=== PATIENT | female | born 1995 | race Hispanic/Latino ===

== ENCOUNTER 2017-11-28 05:55 | Inpatient (IN) | payer OTHER, MEDICAID ==
[2017-11-28] VITALS (19 sets, daily range): BP systolic 19–114; BP diastolic 38–72
[2017-11-28] MEDS ORDERED: LACTATED RINGERS 1000ML 1,000 ML IV PRN (07:05)
[2017-11-28 07:14] LABS: APPEARANCE,URINE CLEAR (CLEAR); BILIRUBIN,URINE NEGATIVE (NEGATIVE); COLOR,URINE YELLOW (YELLOW); GLUCOSE, URINE (UA) NEGATIVE (NEGATIVE); KETONES,URINE NEGATIVE (NEGATIVE); LEUKOCYTE ESTERASE ,URINE NEGATIVE (NEGATIVE); NITRATE,URINE NEGATIVE (NEGATIVE); OCCULT BLOOD,URINE NEGATIVE (NEGATIVE); PH,URINE 7.5 (5.0-8.0); PROTEIN,URINE NEGATIVE (NEGATIVE); UROBILINOGEN,URINE 0.2 mg/dL (0.2-1.0)
[2017-11-28 07:29] LABS: HEMATOCRIT 31.4 % (36-48); MEAN CORPUSCULAR HGB CONC 33.1 g/dL (32.0-36.0); MEAN CORPUSCULAR VOLUME 75.6 fL (79-99); PLATELET COUNT (AUTO) 327 K/uL (130-400); RED BLOOD CELL COUNT(AUTO) 4.15 MIL/uL (4.00-5.50); RED CELL DISTRIBUTION WIDTH 15.5 % (11.0-15.5); WHITE BLOOD COUNT (AUTO) 9.5 K/uL (4.8-10.8)
[2017-11-28] MEDS ORDERED: CALDOLOR 800MG+NS 250ML 250 ML IV ONE (07:35)
[2017-11-28] MEDS ORDERED: CEFAZOLIN SODIUM 1 GM VIAL ONE (07:35)
[2017-11-28] MEDS ORDERED: OXYTOCIN 10 USP UNITS/ML ONE ×3 (07:36→14:54)
[2017-11-28 07:37] LABS: AMPHET/METH SCREEN,URINE NEGATIVE (NEGATIVE); BARBITURATE SCREEN, URINE NEGATIVE (NEGATIVE); BENZODIAZEPINES SCREEN,URINE NEGATIVE (NEGATIVE); CANNABINOID SCREEN,URINE NEGATIVE (NEGATIVE); COCAINE SCREEN,URINE NEGATIVE (NEGATIVE); OPIATE SCREEN,URINE NEGATIVE (NEGATIVE); PHENCYCLIDINE SCREEN,URINE NEGATIVE (NEGATIVE)
[2017-11-28] MEDS ORDERED: METHYLERGONOVINE MALEATE 0.2 MG/1 ML ML ONE (07:52)
[2017-11-28] MEDS ORDERED: SENSORCAINE/DEXT/PF 0.75% 2ML AMP IJ ONE (08:16)
[2017-11-28] MEDS ORDERED: CEFAZOLIN SODIUM 1 GM VIAL IVP ONE (08:30)
[2017-11-28] MEDS ORDERED: OXYTOCIN-LR 20 UNITS/1000 ML 1,000 ML IV PRN (09:15)
[2017-11-28] MEDS ORDERED: LANOLIN 30GM OINTMENT TP PRN (09:15)
[2017-11-28] MEDS ORDERED: SODIUM CHLORIDE 0.9% 10 ML VIAL IVP PRN (09:15)
[2017-11-28] MEDS ORDERED: DIPHENHYDRAMINE HCL 25 MG CAPSULE PO PRN (09:15)
[2017-11-28] MEDS ORDERED: IBUPROFEN 800 MG TAB PO SCH (09:15)
[2017-11-28] MEDS ORDERED: BISACODYL 10 MG SUPP.RECT RC PRN (09:15)
[2017-11-28] MEDS ORDERED: METOCLOPRAMIDE 10 MG/2 ML VIAL ONE (09:20)
[2017-11-28] MEDS ORDERED: ONDANSETRON HCL MDV 20ML 2 MG/ML VIAL ONE (09:20)
[2017-11-28] MEDS ORDERED: EPHEDRINE SULFATE 50 MG/ML AMPULE ONE (09:33)
[2017-11-28] MEDS ORDERED: PREN-18 PO (11:08)
[2017-11-28] MEDS ORDERED: [UNRECOGNIZED DRUG - CODE] PO (11:08)
[2017-11-28] MEDS ORDERED: NALOXONE HCL 0.4 MG/1 ML ML IVP PRN ×2 (14:45)
[2017-11-28] MEDS ORDERED: ONDANSETRON HCL 4 MG/2 ML VIAL IVP PRN ×2 (14:45)
[2017-11-28] MEDS ORDERED: EPHEDRINE SULFATE 50 MG/ML AMPULE IVP PRN (14:45)
[2017-11-28] MEDS ORDERED: PROMETHAZINE HCL 25 MG/ML 1ML AMPULE IM PRN (14:45)
[2017-11-28] MEDS ORDERED: MORPHINE SULFATE 2 MG/ML 1ML SYG IVP PRN (14:45)
[2017-11-28] MEDS ORDERED: DiphenhydrAMINE HCL 50 MG/ML VIAL IVP PRN (14:45)
[2017-11-28] MEDS ORDERED: HYDROCODONE/ACETAMINOPHEN 5/325 MG TAB PO PRN ×2 (14:45)
[2017-11-28] MEDS ORDERED: METOCLOPRAMIDE 10 MG/2 ML VIAL IVP PRN (14:45)
[2017-11-28] MEDS ORDERED: ONDANSETRON HCL 4 MG/2 ML 8 MG in SODIUM CHLORIDE 0.9% 50 ML IVP NR (14:45)
[2017-11-28] MEDS: ACETAMINOPHEN-CODEINE 300/30MG TAB PO PRN (15:03)
[2017-11-28] MEDS ORDERED: CEFAZOLIN 2GM / 50 ML 50 ML IV SCH (16:15)
[2017-11-28] MEDS: CEFAZOLIN SODIUM 1 GM VIAL IVP SCH (17:05)
[2017-11-28] MEDS: SIMETHICONE 80 MG TAB.CHEW PO PRN ×3 (17:06→20:33)
[2017-11-28] MEDS: CALDOLOR 800MG+NS 250ML 250 ML IV SCH (17:06)
[2017-11-28] MEDS: DOCUSATE SODIUM 100 MG CAP PO SCH (20:33)
[2017-11-29] MEDS: CEFAZOLIN SODIUM 1 GM VIAL IVP SCH (01:07)
[2017-11-29] MEDS: DEXTROSE 5 %-0.45 % NACL 1,000 ML IV PRN ×2 (01:07→06:35)
[2017-11-29] MEDS: CALDOLOR 800MG+NS 250ML 250 ML IV SCH (01:13)
[2017-11-29 04:48] VITALS: BP 101/65
[2017-11-29 06:30] LABS: MEAN CORPUSCULAR HGB CONC 31.9 g/dL (32.0-36.0); MEAN CORPUSCULAR VOLUME 75.1 fL (79-99); PLATELET COUNT (AUTO) 321 K/uL (130-400); RED CELL DISTRIBUTION WIDTH 15.3 % (11.0-15.5); WHITE BLOOD COUNT (AUTO) 10.3 K/uL (4.8-10.8)
[2017-11-29 07:35] LABS: HEPATITIS Bs ANTIGEN SCREEN P Negative (Negative)
[2017-11-29 08:27] VITALS: BP 106/62
[2017-11-29] MEDS: DIPH,PERTUSS(ACELL),TET VAC/PF 0.5 ML VIAL IM SCH ×2 (09:15→16:24)
[2017-11-29] MEDS: SIMETHICONE 80 MG TAB.CHEW PO PRN ×4 (09:35→21:07)
[2017-11-29] MEDS: DOCUSATE SODIUM 100 MG CAP PO SCH ×2 (09:36→21:07)
[2017-11-29] MEDS: IBUPROFEN 800 MG TAB PO SCH ×2 (09:36→16:24)
[2017-11-29] MEDS: ACETAMINOPHEN-CODEINE 300/30MG TAB PO PRN ×2 (11:08→17:56)
[2017-11-29 11:57] VITALS: BP 94/64
[2017-11-29 16:00] VITALS: BP 111/66
[2017-11-29 20:32] VITALS: BP 102/52
[2017-11-30] MEDS: IBUPROFEN 800 MG TAB PO SCH ×2 (00:09→09:11)
[2017-11-30 00:36] VITALS: BP 96/73
[2017-11-30 03:33] VITALS: BP 102/59
[2017-11-30] MEDS: DIPH,PERTUSS(ACELL),TET VAC/PF 0.5 ML VIAL IM SCH (07:57)
[2017-11-30 08:13] VITALS: BP 102/60
[2017-11-30] MEDS: SIMETHICONE 80 MG TAB.CHEW PO PRN (09:11)
[2017-11-30] MEDS: DOCUSATE SODIUM 100 MG CAP PO SCH (09:11)
[2017-11-30 12:15] VITALS: BP 99/54
== END 2017-11-30 14:45 | disposition home or self-care (01) | DRG 765 ==
LOC: LDH 05:55 → OBSVTOIN 07:05 → WSH 10:33
PROC: 3E0234Z Introduction of Serum, Toxoid and Vaccine into Muscle, Percutaneous Approach (ICD-10-PCS; 2017-11-28)
PROC: 10D00Z1 Extraction of Products of Conception, Low, Open Approach (ICD-10-PCS; principal; 2017-11-28 08:00)
DX: O34.211 Maternal care for low transverse scar from previous cesarean delivery (principal); D62 Acute posthemorrhagic anemia; D64.9 Anemia, unspecified; Z23 Encounter for immunization; Z37.0 Single live birth; Z3A.38 38 weeks gestation of pregnancy; O90.81 Anemia of the puerperium
CPT/HCPCS: 36415; 59510; 80305; 81003; 85027; 86592; 86850; 86900; 86901; 87340; 90715; A4218; A4344; A4606; G0378; J0690; J1741; J2210; J2590; J2765; J3490; J7120

== ENCOUNTER 2017-12-14 22:16 | Emergency (ER) | payer OTHER, MEDICAID ==
[~2017-12-14 22:16] MED LIST: PREN-18 PO; [UNRECOGNIZED DRUG - CODE] PO
[2017-12-14 23:02] LABS: APPEARANCE,URINE Clear (CLEAR); BASOPHILS % (AUTO) 0.8 % (0.0-5.0); BILIRUBIN,URINE Negative (NEGATIVE); COLOR,URINE Yellow (YELLOW); EOSINOPHILS % (AUTO) 4.6 % (0.0-8.0); GLUCOSE, URINE (UA) Negative (NEGATIVE); HEMATOCRIT 35.6 % (36-48); KETONES,URINE Trace mg/dL (NEGATIVE); LEUKOCYTE ESTERASE ,URINE Moderate (NEGATIVE); LYMPHOCYTES % (AUTO) 30.4 % (21.0-51.0); MEAN CORPUSCULAR HEMOGLOBIN 24.1 pg (27.0-33.0); MEAN CORPUSCULAR VOLUME 75.3 fL (79-99); MONOCYTES % (AUTO) 4.6 % (3.0-13.0); NEUTROPHILS % (AUTO) 59.6 % (40.0-77.0); NITRATE,URINE Negative (NEGATIVE); OCCULT BLOOD,URINE Trace (NEGATIVE); PLATELET COUNT (AUTO) 465 K/uL (130-400); PROTEIN,URINE Negative (NEGATIVE); RED BLOOD CELL COUNT(AUTO) 4.74 MIL/uL (4.00-5.50); RED CELL DISTRIBUTION WIDTH 16.2 % (11.0-15.5); WHITE BLOOD COUNT (AUTO) 8.7 K/uL (4.8-10.8)
[2017-12-14 23:12] LABS: POTASSIUM 3.7 mmol/L (3.5-5.1)
[2017-12-14 23:14] LABS: BACTERIA,URINE Few /HPF (None Seen); MUCUS,URINE Moderate LPF (None Seen); SQUAMOUS EPITHELIAL CELL,UR Many /HPF (0-2)
[2017-12-14 23:17] LABS: ALBUMIN 3.5 g/dL (3.5-5.0); BILIRUBIN,TOTAL 0.3 mg/dL (0.2-1.0); TOTAL PROTEIN, SERUM 7.9 g/dL (6.0-8.3)
[2017-12-15] MEDS ORDERED: HYOSCYAMINE SULFATE 0.125 MG TAB.SUBL SL ONE (00:40)
[2017-12-15] MEDS ORDERED: CEPHALEXIN 500 MG CAPSULE ONE ×2 (00:40→00:43)
== END 2017-12-15 00:55 | disposition home or self-care (01) ==
LOC: EDH 22:16
DX: K80.80 Other cholelithiasis without obstruction (principal); N39.0 Urinary tract infection, site not specified; Z98.890 Other specified postprocedural states
CPT/HCPCS: 36415; 76705; 80053; 81001; 82150; 83690; 85025; 87088

== ENCOUNTER 2018-04-22 21:15 | Emergency (ER) | payer OTHER ==
[2018-04-22 22:54] LABS: BASOPHILS % (AUTO) 0.5 % (0.0-5.0); EOSINOPHILS % (AUTO) 2.4 % (0.0-8.0); HEMATOCRIT 33.3 % (36-48); LYMPHOCYTES % (AUTO) 12.9 % (21.0-51.0); MEAN CORPUSCULAR HEMOGLOBIN 26.9 pg (27.0-33.0); MEAN CORPUSCULAR HGB CONC 33.1 g/dL (32.0-36.0); MEAN CORPUSCULAR VOLUME 81.2 fL (79-99); MONOCYTES % (AUTO) 4.4 % (3.0-13.0); NEUTROPHILS % (AUTO) 79.8 % (40.0-77.0); PLATELET COUNT (AUTO) 355 K/uL (130-400); RED CELL DISTRIBUTION WIDTH 13.9 % (11.0-15.5); WHITE BLOOD COUNT (AUTO) 14.6 K/uL (4.8-10.8)
[2018-04-22 23:00] LABS: CREATININE 0.7 mg/dL (0.5-1.5); POTASSIUM 3.5 mmol/L (3.5-5.1)
[2018-04-22 23:02] LABS: APPEARANCE,URINE Cloudy (CLEAR); BILIRUBIN,URINE Negative (NEGATIVE); COLOR,URINE Dark Yellow (YELLOW); GLUCOSE, URINE (UA) Negative (NEGATIVE); KETONES,URINE Trace mg/dL (NEGATIVE); LEUKOCYTE ESTERASE ,URINE Trace (NEGATIVE); NITRATE,URINE Negative (NEGATIVE); OCCULT BLOOD,URINE Negative (NEGATIVE); PROTEIN,URINE Trace (NEGATIVE)
[2018-04-22 23:07] LABS: BACTERIA,URINE Few /HPF (None Seen); RBC,URINE None Seen /HPF (0-1); SQUAMOUS EPITHELIAL CELL,UR Rare /HPF (0-2)
[2018-04-22 23:07] LABS: ALBUMIN 3.5 g/dL (3.5-5.0); BILIRUBIN,TOTAL 0.2 mg/dL (0.2-1.0); TOTAL PROTEIN, SERUM 7.5 g/dL (6.0-8.3)
[2018-04-22 23:08] LABS: MUCUS,URINE Many LPF (None Seen)
== END 2018-04-23 00:22 | disposition home or self-care (01) ==
LOC: EDH 21:15
DX: K80.80 Other cholelithiasis without obstruction (principal); Z98.890 Other specified postprocedural states
CPT/HCPCS: 36415; 76705; 80053; 81001; 83690; 85025

== ENCOUNTER 2018-06-17 20:15 | Emergency (ER) | payer OTHER ==
[2018-06-17 20:30] LABS: BASOPHILS % (AUTO) 1.2 % (0.0-5.0); EOSINOPHILS % (AUTO) 2.1 % (0.0-8.0); HEMATOCRIT 34.9 % (36-48); LYMPHOCYTES % (AUTO) 36.4 % (21.0-51.0); MEAN CORPUSCULAR HEMOGLOBIN 26.2 pg (27.0-33.0); MEAN CORPUSCULAR HGB CONC 33.1 g/dL (32.0-36.0); MEAN CORPUSCULAR VOLUME 79.3 fL (79-99); MONOCYTES % (AUTO) 5.1 % (3.0-13.0); NEUTROPHILS % (AUTO) 55.2 % (40.0-77.0); PLATELET COUNT (AUTO) 369 K/uL (130-400); RED CELL DISTRIBUTION WIDTH 14.9 % (11.0-15.5); WHITE BLOOD COUNT (AUTO) 11.5 K/uL (4.8-10.8)
[2018-06-17 20:40] LABS: CREATININE 0.7 mg/dL (0.5-1.5); POTASSIUM 3.4 mmol/L (3.5-5.1)
[2018-06-17 20:43] LABS: INR 0.93 (0.85-1.15); PROTHROMBIN TIME 9.8 SEC (9.6-11.6)
[2018-06-17] MEDS ORDERED: POTASSIUM BICARB/CIT AC 25 MEQ TABLET.EFF ONE (20:46)
[2018-06-17 20:52] LABS: ALBUMIN 3.7 g/dL (3.5-5.0); BILIRUBIN,TOTAL 0.2 mg/dL (0.2-1.0); TOTAL PROTEIN, SERUM 7.8 g/dL (6.0-8.3)
[2018-06-17 20:58] LABS: HCG,QUAL RESULT NEGATIVE (NEGATIVE)
[2018-06-17 21:05] LABS: AMPHET/METH SCREEN,URINE NEGATIVE (NEGATIVE); BARBITURATE SCREEN, URINE NEGATIVE (NEGATIVE); BENZODIAZEPINES SCREEN,URINE NEGATIVE (NEGATIVE); CANNABINOID SCREEN,URINE NEGATIVE (NEGATIVE); COCAINE SCREEN,URINE NEGATIVE (NEGATIVE); OPIATE SCREEN,URINE NEGATIVE (NEGATIVE); PHENCYCLIDINE SCREEN,URINE NEGATIVE (NEGATIVE)
[2018-06-17] MEDS ORDERED: ASPIRIN 325 MG TABLET ONE (21:40)
== END 2018-06-17 22:56 | disposition home or self-care (01) ==
LOC: EDH 20:15
DX: R07.89 Other chest pain (principal); R11.2 Nausea with vomiting, unspecified; R00.2 Palpitations; R61 Generalized hyperhidrosis; Z98.890 Other specified postprocedural states
CPT/HCPCS: 36415; 71045; 80053; 80305; 81025; 82550; 83874; 84484; 85025; 85610; 85730; 93005; 94761

== ENCOUNTER 2024-05-30 17:03 | Emergency (ER) | payer MEDICAID ==
[~2024-05-30] VITALS: Ht 152.4 cm; Wt 72.6 kg
[~2024-05-30 17:03] MED LIST changes: +[UNRECOGNIZED DRUG - CODE] PO; -[UNRECOGNIZED DRUG - CODE] PO
--- NOTE | 2024-05-30 17:16 | ERN ---
ED Note History of Present Illness Stated Complaint: OB<20 WEEKS Chief Complaint: Vaginal Bleeding Time Seen by MD: 17:12 Dictation: PATIENT IS A 28-YEAR-OLD FEMALE HERE WHO IS 10 WEEKS FOUR DAYS STATES SHE STARTED HAVING VAGINAL BLEEDING WITH CRAMPING ONSET THIS AFTERNOON. 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 LAST ULTRASOUND WAS LAST WEEK SHE HAD A HEART RATE OF 160. Allergies: Coded Allergies: No Known Drug Allergies (Verified Allergy, 07/09/13) Home Meds Reported Medications Vit W-Ca,Fe,FA(<1 mg) ( Formula) 1 Each Tablet, 1 EACH PO DAILY, TAB 11/28/17 Calcium Carbonate (Antacid) 300 Mg Tab.chew, 300 MG PO DAILY, TAB.CHEW 11/28/17 Past Medical History Past Medical History: No Pertinent History Surgical History: PSYCH History: no pertinent psych hx History: Not Applicable : 3 Para: 2 RN Note Reviewed/Agreed w/PFSH: Yes Review of System Dictation CONSTITUTIONAL: NEGATIVE EXCEPT FOR HPI HEAD/FACE: NEGATIVE EXCEPT FOR HPI EENT: NEGATIVE EXCEPT FOR HPI RESPIRATORY: NEGATIVE EXCEPT FOR HPI GASTROINTESTINAL/ABDOMINAL: NEGATIVE EXCEPT FOR HPI GENITOURINARY: NEGATIVE EXCEPT FOR HPI VAGINAL SPOTTING WITH CRAMPING MUSCULOSKELETAL: NEGATIVE EXCEPT FOR HPI INTEGUMENTARY: NEGATIVE EXCEPT FOR HPI NEUROLOGICAL/PSYCH: NEGATIVE EXCEPT FOR HPI HEMATOLOGIC/LYMPHATIC: NEGATIVE EXCEPT FOR HPI ALL SYSTEMS NEGATIVE, EXCEPT NOTED ABOVE. 13 POINT REVIEW OF SYSTEMS ASSESSED AND ALL NEGATIVE EXCEPT FOR ABOVE. Initial Vital Sign VS Vital Signs Date Time Temp Pulse Resp B/P (MAP) Pulse Ox O2 Delivery O2 Flow Rate FiO2 05/30/24 17:07 98.8 86 18 130/79 100 Room Air 05/30/24 17:09 0 21 Physical Exam Dictation VITAL SIGNS REVIEWED GENERAL APPEARANCE: ALERT, ORIENTED X 3, NO ACUTE DISTRESS, WELL DEVELOPED, NOURISHED. HEAD AND FACE: NON-TRAUMATIC. EYES: PERRL, PINK CONJUNCTIVAS, EYELID NO TRAUMA, ANTERIOR CHAMBER WITH ARCUS SENILIS. EARS: PINNAS INTACT AND NO SIGNS OF TRAUMA OR ERYTHEMA EAR CANALS CLEAR AND NO DISCHARGE TM NO ERYTHEMA NOSE: NO DISCHARGE, NO BLEEDING. OROPHARYNX: MOUTH NORMAL, TONGUE PINK, PHARYNX CLEAR,NO ERYTHEMA, TONSILS NO EXUDATES, NO ABSCESSES NOTED, MUCOUS MEMBRANE MOIST NECK: SUPPLE, NON-TENDER, NO THYROMEGALY, NO MASSES, NO JVD, NO BRUITS BREAST:DEFERRED CHEST:NO TENDERNESS, NO CREPITUS, NO PARADOXICAL MOVEMENT, NO RETRACTIONS LUNGS:CLEAR, WELL-VENTILATED, SYMMETRIC, NO RALES, NO WHEEZING, NO RHONCHI, NO STRIDOR, GOOD BREATH SOUNDS BILATERALLY HEART: REGULAR RATE, REGULAR RHYTHM, NO MURMUR, NO GALLOPS VASCULAR: NO PERIPHERAL EDEMA, ABDOMEN: SOFT, POSITIVE BOWEL SOUNDS, NONDISTENDED, NO GUARDING, NONTENDER, NO REBOUND, NO MASSES NO HEPATOMEGALY, NO SPLENOMEGALY, NO DOSS'S SIGN, NO HERNIAS. RECTAL: DEFERRED GENITAL: DEFERRED NEUROLOGICAL: NORMAL SPEECH, MOTOR FUNCTION INTACT, SENSORY FUNCTION INTACT MUSCULOSKELETAL: NECK NONTENDER, FULL RANGE OF MOTION, BACK NONTENDER, FULL RANGE OF MOTION, EXTREMITIES: NONTENDER, FULL RANGE OF MOTION SKIN: COLOR PINK, DRY, NO TURGOR, NO RASH, NO LACERATIONS, NO ABRASIONS, NO CONTUSIONS. LYMPHATIC: DEFERRED Results (Laboratory/Radiology) Laboratory/Radiology Laboratory Tests Test 05/30/24 17:28 White Blood Count 12.1 K/uL (4.8-10.8) H Red Blood Count 4.34 MIL/uL (4.00-5.50) Hemoglobin 12.4 g/dL (12.0-16.0) Hematocrit 37.0 % (36-48) Mean Corpuscular Volume 85.3 fL (79-99) Mean Corpuscular Hemoglobin 28.6 pg (27.0-33.0) Mean Corpuscular Hemoglobin Concent 33.5 g/dL (32.0-36.0) Red Cell Distribution Width 13.5 % (11.0-15.5) Platelet Count 340 K/uL (130-400) Mean Platelet Volume 9.9 fL (7.5-10.5) Immature Granulocyte % (Auto) 0.5 % (0-1) Neutrophils (%) (Auto) 72.0 % (40.0-77.0) Lymphocytes (%) (Auto) 20.4 % (21.0-51.0) L Monocytes (%) (Auto) 5.0 % (3.0-13.0) Eosinophils (%) (Auto) 1.5 % (0.0-8.0) Basophils (%) (Auto) 0.6 % (0.0-5.0) Neutrophils # (Auto) 8.7 K/uL (1.8-7.7) H Lymphocytes # (Auto) 2.5 K/uL (1.0-4.8) Monocytes # (Auto) 0.6 K/uL (0.1-1.0) Eosinophils # (Auto) 0.18 K/uL (0.00-0.70) Basophils # (Auto) 0.07 K/uL (0.00-0.20) Absolute Immature Granulocyte (auto 0.06 K/uL (0-1) Nucleated Red Blood Cells 0.0 % (0.0-0.19) Human Chorionic Gonadotropin, Quant 02514 mIU/mL (0-5) H ED Course ED Course Orders Procedure Category Date Status Time Cbc With Differential LAB 05/30/24 Complete 17:12 Hcg,Quantitative LAB 05/30/24 Complete 17:12 Us Ob <14 Weeks US 05/30/24 Resulted 17:12 Type And Screen BBK 05/30/24 Complete 17:12 *Nursing CPOE 05/30/24 Transmitted Communication: 17:12 Acetaminophen 500mg PHA 05/30/24 Complete Tab (Tylenol 500mg T 17:30 Current Medications Medications (Trade) Dose Ordered Sig/Monica Route PRN Reason Start Time Stop Time Status Last Admin Dose Admin Acetaminophen (TYLenol 500MG TAB) 1,000 mg ONCE ONCE PO 05/30/24 17:30 05/30/24 17:31 DC 05/30/24 17:20 Vital Signs Date Time Temp Pulse Resp B/P (MAP) Pulse Ox O2 Delivery O2 Flow Rate FiO2 05/30/24 18:21 98.4 84 16 92/63 97 Room Air* 0 21 05/30/24 17:09 98.8 86 18 130/79 100 Room Air* 0 21 05/30/24 17:07 98.8 86 18 130/79 100 Room Air 1902 PATIENT TOLD TO USE PELVIC REST STRICTLY AND TO SEE HER PRIMARY CARE DOCTOR SUNDAY WITHOUT FAIL FOR FOLLOW UP AND TREATMENT. Medical Decision Making MDM MDM: DIFFERENTIAL DIAGNOSIS: INCOMPLETE A B/THREATENED A B/ANEMIA/ELECTROLYTE IMBALANCE RATIONALE: TESTS CONSIDERED AND ORDERED SECONDARY TO SHARED DECISION MAKING INCLUDE: ULTRASOUND/LABS PREVIOUS OUTSIDE RECORDS REVIEWED: OLD ER VISITS. REVIEWED RISK OF COMPLICATION AND/OR MORBIDITY OR MORTALITY OF PATIENT MANAGEMENT: NONE MEDICATIONS-PER MEDICATION RECONCILIATION SEE NURSE'S NOTES NEED FOR HOSPITALIZATION: PATIENT DOES NOT MEET CRITERIA FOR HOSPITALIZATION. NEED FOR EMERGENCY MAJOR/MINOR SURGERY: NO THERE ARE NO SOCIAL CONCERNS WITH THIS PATIENT. PRESCRIPTION DRUG MANAGEMENT NONE PRESCRIPTIONS WILL INCLUDE SYMPTOMATIC CARE PATIENT'S PRIOR EXTERNAL MEDICAL RECORDS FROM OTHER ER VISITS WERE REVIEWED BY ME INDICATED. PRIOR TESTING AND RESULTS FROM PREVIOUS VISITS WERE REVIEWED. PRIOR TESTS WERE TAKEN INTO ACCOUNT WITH MEDICAL DECISION MAKING AND RESOURCE UTILIZATION, INDEPENDENT HISTORIAN/HISTORIANS WERE USED TO OBTAIN COMPLETE MEDICAL HISTORY. I INDEPENDENTLY INTERPRETED THE TEST THAT WERE PERFORMED, RESULTS WERE REVIEWED BY ME AND CONSIDERED FINDINGS ON RADIOLOGY IF ORDERED. MEDICAL MANAGEMENT AND EXAMINATION INTERPRETATION DISCUSSIONS WERE HAD BY ME WITH OTHER QUALIFIED HEALTHCARE PROFESSIONALS INDICATED FOR THE PATIENT'S CARE. Procedure Procedure Dictation: ONE THOUSAND NINE HUNDRED, PROCEDURE EXPLAINED TO PATIENT SHE AGREED TO PROCEED MAUDE RN IN ROOM WITH THE EXAM PATIENT PLACED IN LITHOTOMY POSITION EXTERNAL EXAM NEGATIVE INTERNAL EXAM OS WAS CLOSED HOWEVER2 ML OF DARK BLOOD IN THE VAULT. NO LESIONS NO CMT TENDERNESS DX & DISP Disposition: Discharge Departure Impression: Primary Impression: Threatened in second trimester Additional Impression: Vaginal bleeding before 22 weeks gestation Condition: Stable Additional Instructions: FOLLOW-UP WITH PRIMARY CARE PROVIDER IN 1 TO 2 DAYS. TAKE MEDICATIONS DIRECTED HERE IN THE EMERGENCY ROOM. OKAY TO CONTINUE HOME MEDICATIONS UNLESS OTHERWISE DISCUSSED DURING YOUR VISIT IN THE EMERGENCY ROOM TODAY. RETURN TO YOUR NEAREST EMERGENCY ROOM IF SYMPTOMS WORSEN OR IF THERE IS NO IMPROVEMENT. CALL 911 IF YOU NEED IMMEDIATE ASSISTANCE. TAKE [id number] NEEDED AND IF NO CONTRAINDICATIONS ARE PRESENT. INCREASE ORAL HYDRATION. A WOUND CULTURE OR URINE CULTURE WAS ORDERED HERE IN THE EMERGENCY ROOM DEPARTMENT PLEASE FOLLOW-UP WITH PRIMARY CARE PROVIDER AND ADVISE THEM TO GET REPEAT PORTS FROM OUR FACILITY. IF YOU HAD ANY JACKIE WRAP/SPLINTS THAT WERE APPLIED HERE, PLEASE DO NOT REMOVE THEM UNTIL YOU SEE YOUR PRIMARY CARE OR SPECIALTY. PELVIC REST AND NO SEX UNTIL CLEARED BY YOUR [employer]PER[employer]OR [employer] DOCTOR ON SUNDAY. TYLENOL ONLY FOR PAIN. Referrals: SELF,REFERRAL (PCP) Time of Disposition: 19:05 I have reviewed the case, and I agree with, Diagnosis and Plan RITA CASTANDEA NP May 30, 2024 17:16
[2024-05-30] MEDS: acetaMINOPHEN 500 MG TABLET PO ONE (17:20)
[2024-05-30 17:34] LABS: BASOPHILS # (AUTO) 0.07 K/uL (0.00-0.20); BASOPHILS % (AUTO) 0.6 % (0.0-5.0); EOSINOPHILS # (AUTO) 0.18 K/uL (0.00-0.70); EOSINOPHILS % (AUTO) 1.5 % (0.0-8.0); IMMATURE GRANULOCYTE ABSOLUTE 0.06 K/uL (0-1); LYMPHOCYTES # (AUTO) 2.5 K/uL (1.0-4.8); LYMPHOCYTES % (AUTO) 20.4 % (21.0-51.0); MEAN CORPUSCULAR HEMOGLOBIN 28.6 pg (27.0-33.0); MEAN CORPUSCULAR HGB CONC 33.5 g/dL (32.0-36.0); MEAN CORPUSCULAR VOLUME 85.3 fL (79-99); MONOCYTES # (AUTO) 0.6 K/uL (0.1-1.0); NEUTROPHILS # (AUTO) 8.7 K/uL (1.8-7.7); PLATELET COUNT (AUTO) 340 K/uL (130-400); RED BLOOD CELL COUNT(AUTO) 4.34 MIL/uL (4.00-5.50); RED CELL DISTRIBUTION WIDTH 13.5 % (11.0-15.5); WHITE BLOOD COUNT (AUTO) 12.1 K/uL (4.8-10.8)
--- NOTE | 2024-05-30 18:31 | HMCIMG ---
US OB <14 WEEKS HISTORY: Vaginal bleeding COMPARISON: None TECHNIQUE: Obstetrical ultrasound study was performed. FINDINGS: The uterus measures 13.2 x 7.5 centimeter. Right ovary measures 2.1 x 1.7 x 2.1 centimeter. Left ovary measures 2.5 x 1.9 x 2.5 centimeter. There is single intrauterine gestation with estimated gestational age of 10 weeks and 6 days. heart rate is 154 beats per minute. No fluid is seen in the cul-de-sac. There is small subchorionic hemorrhage measuring 1.7 x 1.2 x 1.1 cm. There may be fibroids in the uterus with the largest measuring 5.2 x 5.2 x 5.5 cm. IMPRESSION: 1. There is single intrauterine gestation with estimated gestational age of 10 weeks and 6 days. heart rate is 154 beats per minute. Suspect fibroid uterus. Small subchorionic hemorrhage is seen.
[2024-05-30 19:38] VITALS: BP 103/60; PULSE 84; RESP 17; TEMP 98.4; O2SAT 99
== END 2024-05-30 20:00 | disposition home or self-care (01) ==
LOC: EDH 17:03
DX: O20.0 Threatened abortion (principal); O20.8 Other hemorrhage in early pregnancy; Z3A.10 10 weeks gestation of pregnancy; Z79.899 Other long term (current) drug therapy; Z98.890 Other specified postprocedural states
CPT/HCPCS: 36415; 76801; 84702; 85025; 86850; 86900; 86901